=== PATIENT | male | born 1960 | race Caucasian/White ===

== ENCOUNTER 2023-10-02 21:00 | Inpatient (IN) | payer OTHER ==
[~2023-10-02] VITALS: Ht 180.3 cm; Wt 148.6 kg
[2023-10-02 21:11] VITALS: BP 138/82; PULSE 88; RESP 18; TEMP 98; O2SAT 97
[2023-10-02 21:40] VITALS: O2SAT 97
[2023-10-02 22:47] LABS: BASOPHILS % (AUTO) 0.4 % (0.0-2.0); EOSINOPHILS # (AUTO) 0.1 K/uL (0-0.4); HEMATOCRIT 44.1 % (36-52); HEMOGLOBIN 14.9 g/dL (12.0-18.0); LYMPHOCYTES # (AUTO) 2.3 K/uL (2.0-11.5); LYMPHOCYTES % (AUTO) 22.6 % (20.5-51.1); MEAN CORPUSCULAR HEMOGLOBIN 32 pg (27-31); MEAN CORPUSCULAR HGB CONC 34 g/dL (33-37); MEAN CORPUSCULAR VOLUME 94.5 fL (80-94); MONOCYTES # (AUTO) 0.6 K/uL (0.8-1.0); MONOCYTES % (AUTO) 5.5 % (1.7-9.3); NEUTROPHILS # (AUTO) 7.2 K/uL (1.8-7.7); NEUTROPHILS % (AUTO) 70.5 % (42.2-75.2); PLATELET COUNT (AUTO) 103 K/uL (140-450); RED BLOOD CELL COUNT(AUTO) 4.67 MIL/uL (4.20-6.10); RED CELL DISTRIBUTION WIDTH 16.6 % (11.6-13.7); WHITE BLOOD COUNT (AUTO) 10.1 K/uL (4.8-10.8)
[2023-10-02 22:55] LABS: ANION GAP 9.5 (8-16); CALCIUM 8.6 mg/dL (8.5-10.1); CREATININE 1.3 mg/dL (0.6-1.3); POTASSIUM 3.5 mmol/L (3.5-5.1)
[2023-10-02 23:06] LABS: ALANINE AMINOTRANSFERASE 21 U/L (12-78); ALBUMIN 3.3 g/dL (3.4-5.0); ALKALINE PHOSPHATASE 86 U/L (50-136); ASPARTATE AMINOTRANSFERASE 11 U/L (15-37); BILIRUBIN,DIRECT 0.3 mg/dL (0.0-0.3); TOTAL BILIRUBIN 0.7 mg/dL (0.0-1.0); TOTAL PROTEIN, SERUM 7.4 g/dL (6.4-8.2)
[2023-10-03] VITALS (9 sets, daily range): BP systolic 100–122; BP diastolic 60–71; PULSE 57–109; RESP 16–18; TEMP 97.6–98.2; O2SAT 96–98
[2023-10-03] MEDS ORDERED: HYDROcodone/APAP 5/325 MG 1 TAB TAB PO PRN (01:00)
[2023-10-03] MEDS ORDERED: ONDANSETRON 4 MG/2 ML VIAL IVP PRN (01:00)
[2023-10-03] MEDS ORDERED: DEXTROSE 50% 50 ML SYR IVP PRN (01:05)
[2023-10-03] MEDS: oxyCODONE/APAP 5/325 MG 1 TAB TAB PO ONE (01:12)
[2023-10-03] MEDS ORDERED: TUBE5SOL28 TD (01:44)
[2023-10-03] MEDS ORDERED: ASCO500T95 PO (01:44)
[2023-10-03] MEDS ORDERED: MELA1TAB32 PO (01:44)
[2023-10-03] MEDS ORDERED: NILO200C PO (01:44)
[2023-10-03] MEDS ORDERED: DIGO-119 PO (01:44)
[2023-10-03] MEDS ORDERED: NALO4SPR NS (01:44)
[2023-10-03] MEDS ORDERED: ACET-2619 PO (01:44)
[2023-10-03] MEDS ORDERED: FURO-570 PO ×2 (01:44)
[2023-10-03] MEDS ORDERED: ACET-5636 PO (01:44)
[2023-10-03] MEDS ORDERED: GABA100C PO (01:44)
[2023-10-03] MEDS ORDERED: VITB12 PO (01:44)
[2023-10-03] MEDS ORDERED: ALPR0.5T2 PO (01:44)
[2023-10-03] MEDS ORDERED: ZYL300 PO (01:44)
[2023-10-03] MEDS ORDERED: LYR50 PO (01:44)
[2023-10-03] MEDS ORDERED: DILT240C80 PO (01:44)
[2023-10-03 05:47] LABS: APPEARANCE,URINE CLEAR (CLEAR); BILIRUBIN,URINE NEGATIVE (NEGATIVE); BLOOD, URINE NEGATIVE (NEGATIVE); COLOR,URINE YELLOW (YELLOW); LEUKOCYTE ESTERASE ,URINE NEGATIVE (NEGATIVE); NITRITE, URINE NEGATIVE (NEGATIVE); PROTEIN,URINE NEGATIVE (NEGATIVE); UGLUCOSE 1+ (NEGATIVE)
[2023-10-03] MEDS: BLOOD GLUCOSE MONITORING 1 DEV DEV FS SCH (07:05)
[2023-10-03] MEDS: INSULIN LISPRO SLIDING SCALE 100 UNITS/ML VIAL SUBQ PRN (07:07)
[2023-10-03] MEDS: APIXABAN 2.5 MG TAB PO SCH (08:43)
[2023-10-03] MEDS ORDERED: NILOTINIB HCL 150 MG PO SCH (10:11)
[2023-10-03] MEDS ORDERED: NON-FORMULARY ITEM (Oxycodone HCl/Acetaminophen (Percocet 10-325 mg Tablet) 1 TAB) PO PRN (10:35)
[2023-10-03] MEDS: oxyCODONE/APAP 5/325 MG 1 TAB TAB PO PRN (11:01)
[2023-10-03] MEDS ORDERED: COMMUNICATION ORDER MC ONE (12:30)
[2023-10-03] MEDS: TASIGNA 150 MG PO SCH ×3 (12:45→23:37)
[2023-10-03] MEDS: NACL 0.9% 1,000 ML IV SCH (15:25)
[2023-10-03] MEDS ORDERED: COMMUNICATION ORDER MC SCH (21:00)
[2023-10-03] MEDS: PREGABALIN 50 MG CAP PO ONE (23:36)
[2023-10-04] VITALS (9 sets, daily range): BP systolic 105–129; BP diastolic 60–74; PULSE 47–76; RESP 18–19; TEMP 96.4–98.2; O2SAT 97–98
[2023-10-04] MEDS: MELATONIN 3 MG TAB PO PRN (00:03)
[2023-10-04 06:11] LABS: BASOPHILS % (AUTO) 0.3 % (0.0-2.0); EOSINOPHILS # (AUTO) 0.1 K/uL (0-0.4); EOSINOPHILS % (AUTO) 1.6 % (0.0-4.0); HEMATOCRIT 43.7 % (36-52); HEMOGLOBIN 14.7 g/dL (12.0-18.0); LYMPHOCYTES # (AUTO) 2.6 K/uL (2.0-11.5); LYMPHOCYTES % (AUTO) 31.3 % (20.5-51.1); MEAN CORPUSCULAR HEMOGLOBIN 32 pg (27-31); MEAN CORPUSCULAR HGB CONC 34 g/dL (33-37); MEAN CORPUSCULAR VOLUME 94.6 fL (80-94); MONOCYTES # (AUTO) 0.5 K/uL (0.8-1.0); MONOCYTES % (AUTO) 6.3 % (1.7-9.3); NEUTROPHILS # (AUTO) 5.1 K/uL (1.8-7.7); NEUTROPHILS % (AUTO) 60.5 % (42.2-75.2); PLATELET COUNT (AUTO) 104 K/uL (140-450); RED BLOOD CELL COUNT(AUTO) 4.61 MIL/uL (4.20-6.10); RED CELL DISTRIBUTION WIDTH 16.6 % (11.6-13.7); WHITE BLOOD COUNT (AUTO) 8.4 K/uL (4.8-10.8)
[2023-10-04 06:22] LABS: ALBUMIN 3.1 g/dL (3.4-5.0); ANION GAP 11.9 (8-16); CALCIUM 8.4 mg/dL (8.5-10.1); CREATININE 1.1 mg/dL (0.6-1.3); POTASSIUM 3.9 mmol/L (3.5-5.1); TOTAL PROTEIN, SERUM 7.2 g/dL (6.4-8.2)
[2023-10-04] MEDS: PREGABALIN 50 MG CAP PO SCH (08:43)
[2023-10-04] MEDS: allopurinoL 300 MG TAB PO SCH (08:43)
[2023-10-04] MEDS: DIGOXIN 0.25 MG TAB PO SCH (08:43)
[2023-10-04] MEDS: FUROSEMIDE 40 MG TAB PO SCH (08:44)
[2023-10-04] MEDS ORDERED: CLINICAL MONITORING MC PRN (13:45)
[2023-10-04] MEDS: TASIGNA 150 MG PO SCH (22:25)
[2023-10-04] MEDS: CALCIUM CARBONATE 500 MG TAB.CHEW PO SCH (23:48)
[2023-10-05] VITALS (7 sets, daily range): BP systolic 113–157; BP diastolic 59–80; PULSE 51–75; RESP 18–21; TEMP 97–97.9; O2SAT 96–100
[2023-10-05] MEDS: ALPRAZolam 0.5 MG TAB PO PRN (12:29)
[2023-10-05] MEDS ORDERED: APIX2.5 PO (14:33)
[2023-10-05] MEDS ORDERED: APIX5TAB PO (14:33)
[2023-10-06] VITALS: BP 118/65; PULSE 58; PULSE 69; RESP 20; TEMP 97.8; O2SAT 97
[2023-10-06 04:00] VITALS: BP 119/60; PULSE 53; PULSE 57; RESP 19; TEMP 98.1; O2SAT 98
[2023-10-06 08:00] VITALS: BP 107/53; PULSE 63; RESP 20; TEMP 97.3; O2SAT 100
[2023-10-06 12:00] VITALS: BP 136/50; PULSE 56; RESP 20; TEMP 97.5; O2SAT 100
== END 2023-10-06 16:17 | DRG 300 ==
LOC: MED 21:00 → OBSVTOIN 10-03 01:02 → MTU 10-03 01:02
PROVIDERS: ADMIT Hospitalist; ATTEND Hospitalist
DX: I82.401 Acute embolism and thrombosis of unspecified deep veins of right lower extremity (principal); N17.9 Acute kidney failure, unspecified; Z68.42 Body mass index [BMI] 45.0-49.9, adult; I11.0 Hypertensive heart disease with heart failure; I50.9 Heart failure, unspecified; E11.9 Type 2 diabetes mellitus without complications; E66.9 Obesity, unspecified; Z79.899 Other long term (current) drug therapy; Z99.3 Dependence on wheelchair
CPT/HCPCS: 36415; 71045; 80048; 80053; 80076; 81003; 82948; 84484; 85025; 87081; 93970; Q0092